=== PATIENT | male | born 1955 | race Caucasian/White ===

== ENCOUNTER 2017-11-26 10:19 | Inpatient (IN) | payer OTHER ==
[2017-11-26 11:00] LABS: PLATELET COUNT 176 10^3/uL (150-400)
--- NOTE | 2017-11-26 11:27 | EDPHY ---
H & P Time Seen by Provider: 11/26/17 10:59 HPI/ROS: CHIEF COMPLAINT: Cough, shortness of breath HISTORY OF PRESENT ILLNESS: 62-year-old male with a history of coronary artery disease and exercise-induced asthma presents with cough and shortness of breath. Onset of runny nose, sore throat and cough 5 days ago. Associated with chills, no known fever. Gradually increasing shortness of breath over last 5 days, now short of breath at rest. He started Ceftin, prednisone and an albuterol inhaler 4 days ago, without relief. He was seen in the office by Dr. Snyder this morning and oxygen saturation was 84% on room air. 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 Smoking Status: Current some day smoker Physical Exam: General Appearance: Alert, pleasant Eyes: Pupils equal and round, no conjunctival pallor or injection ENT, Mouth: Mucous membranes moist Neck: Normal inspection Respiratory: Diffuse expiratory wheezing Cardiovascular: Regular rate and rhythm Gastrointestinal: Abdomen is soft and nontender Neurological: A&O, nonfocal, normal gait Skin: Warm and dry Extremities: Normal inspection Psychiatric: Mood and affect normal Constitutional: Initial Vital Signs Temperature (C) 36.8 C 11/26/17 10:25 Heart Rate 66 11/26/17 10:25 Respiratory Rate 19 11/26/17 10:25 Blood Pressure 127/71 H 11/26/17 10:25 O2 Sat (%) 90 L 11/26/17 10:25 O2 Delivery Mode Room Air O2 (L/minute) 2 Allergies/Adverse Reactions: oxycodone Allergy (Verified 11/26/17 10:23) Home Medications: Medication Instructions Recorded Albuterol Sulfate [Albuterol 1 - 2 puffs IH Q4H PRN 01/31/15 Inhaler Hfa] Aspirin [Aspirin 81mg (*)] 162 mg PO HS 11/26/17 Cefuroxime Axetil [Cefuroxime] 500 mg PO BID 11/26/17 Codeine Phosphate/Guaifenesin 10 ml PO Q6HRS PRN 11/26/17 [Guaiatussin AC Liquid] Nebivolol HCl [Bystolic 5 mg (*)] 10 mg PO HS 11/26/17 Omeprazole [Prilosec 20 mg] 40 mg PO HS 11/26/17 Rosuvastatin Calcium [Crestor 40mg 40 mg PO HS 11/26/17 (*)] amLODIPine BESYLATE [Norvasc 10 mg 10 mg PO HS 11/26/17 (*)] predniSONE [Prednisone] 30 mg PO DAILY 11/26/17 Medical Decision Making - Diagnostics Imaging Results: Chest x-ray independently reviewed by me reveals no infiltrate. ED Course/Re-evaluation: This patient presents with influenza-like symptoms, bronchospasm and hypoxia during an influenza epidemic. He does not meet SIRS criteria. Chest x-ray reveals no evidence of pneumonia. A DuoNeb and Solu-Medrol 125 mg IV given. Feels better and bronchospasm lessened after the DuoNeb. However, he continues to be hypoxic. Influenza A positive. Given 5 days of symptoms, I do not feel that Tamiflu will benefit this patient. He will need to be admitted for hypoxia and bronchospasm. The hospitalist service was consulted for admission. - Data Points Laboratory Results: Laboratory Results 11/26/17 10:50 11/26/17 10:50 Medications Given: Albuterol (Proventil Neb) 3 ml IH Q2HRS PRN PRN Reason: Short of Breath/Dyspnea Stop: 05/25/18 12:59 Last Admin: 11/26/17 14:30 Dose: 3 ml Albuterol/Ipratropium (Duoneb) 3 ml IH QID [facility] Stop: 05/25/18 15:59 Last Admin: 11/27/17 05:42 Dose: 3 ml Aspirin (Aspirin) 162 mg PO [facility] Stop: 05/25/18 20:59 Last Admin: 11/26/17 21:39 Dose: 162 mg Nebivolol (Bystolic) 10 mg PO [facility] Stop: 05/25/18 20:59 Last Admin: 11/26/17 21:39 Dose: 10 mg Oseltamivir Phosphate (Tamiflu) 75 mg PO BIDMEAL [facility] Stop: 11/30/17 18:01 Last Admin: 11/26/17 17:50 Dose: 75 mg Pantoprazole Sodium (Protonix) 40 mg PO [facility] Stop: 05/25/18 20:59 Last Admin: 11/26/17 21:39 Dose: 40 mg Rosuvastatin Calcium (Crestor) 40 mg PO HS [facility] Stop: 05/25/18 20:59 Last Admin: 11/26/17 21:39 Dose: 40 mg Departure - Departure Disposition: [facility] Acute Clinical Impression: Influenza A Exacerbation of asthma Qualifiers: Asthma severity: moderate Asthma persistence: persistent Qualified Code(s): J45.41 - Moderate persistent asthma with (acute) exacerbation Acute bronchitis Qualifiers: Bronchitis organism: unspecified organism Qualified Code(s): J20.9 - Acute bronchitis, unspecified Condition: Fair
[2017-11-26] MEDS ORDERED: ONDANSETRON 4 MG/2 ML VIAL IVP PRN (12:54)
[2017-11-26] MEDS ORDERED: ONDANSETRON DISINTEGRATING 4 MG TAB PO PRN (12:54)
[2017-11-26] MEDS ORDERED: ACETAMINOPHEN 325 MG TAB PO PRN (12:54)
[2017-11-26] MEDS ORDERED: ALBUTEROL 3 ML DEYVIAL IH PRN (13:00)
[2017-11-26] MEDS: OSELTAMIVIR PHOSPHATE 75 MG CAP PO SCH ×2 (13:42→17:50)
--- NOTE | 2017-11-26 15:47 | PDGENHP ---
History and Physical - Chief Complaint cough, SOB, hypoxic in clinic - History of Present Illness 62 yo male with h/o CAD s/p stent in 2014, exercise induced asthma / RAD presents to ED with cough, fatigue, SOB. Symptoms started 4 days ago when he noticed dyspnea while walking the dogs. +subjective fevers and chills. He then coughed all night, a deep, dry cough. No chest pain or pressure. 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 That night, he passed out and hit his head. +LOC. No ongoing headaches, no vomiting or confusion. He felt a little better and saw his motor mechanic today for routine follow up. They tested his walking O2 sat and he was hypoxemic, sats dropped to 80% and he was sent to the ED. History Information - Allergies/Home Medication List Allergies/Adverse Reactions: oxycodone Allergy (Verified 11/26/17 10:23) Home Medications: Albuterol Sulfate [Albuterol Inhaler Hfa] 1 - 2 puffs IH Q4H PRN 01/31/15 [Last Taken Unknown] Aspirin [Aspirin 81mg (*)] 162 mg PO HS 11/26/17 [Last Taken 11/25/17] Cefuroxime Axetil [Cefuroxime] 500 mg PO BID 11/26/17 [Last Taken 11/26/17] Codeine Phosphate/Guaifenesin [Guaiatussin AC Liquid] 10 ml PO Q6HRS PRN [Last Taken 11/25/17 21:00] Nebivolol HCl [Bystolic 5 mg (*)] 10 mg PO HS 11/26/17 [Last Taken 11/25/17] Omeprazole [Prilosec 20 mg] 40 mg PO HS 11/26/17 [Last Taken 11/25/17] Rosuvastatin Calcium [Crestor 40mg (*)] 40 mg PO HS 11/26/17 [Last Taken ] amLODIPine BESYLATE [Norvasc 10 mg (*)] 10 mg PO HS 11/26/17 [Last Taken ] predniSONE [Prednisone] 30 mg PO DAILY 11/26/17 [Last Taken 11/26/17] I have personally reviewed and updated: family history, medical history, social history, surgical history - Past Medical History Additional medical history: RAD / exercise induced asthma. CAD s/p stent. PAD with right femoral arterial occlusion, s/p mechanical thrombectomy - Surgical History Reports: appendectomy Additional surgical history: anal fissure repair, b/l ELIEL, angiogram with PCI - Social History Smoking Status: Former smoker Alcohol Use: None Drug Use: None Additional social history: , at bedside. 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 Review of Systems Review of Systems: ROS: 10pt was reviewed & negative except for what was stated in HPI & below Physical Exam Physical Exam: Temp Pulse Resp BP Pulse Ox 36.6 C 64 20 120/77 94 11/26/17 13:50 11/26/17 14:30 11/26/17 14:30 11/26/17 13:50 11/26/17 14:30 O2 (L/minute) 2 Constitutional: no apparent distress Eyes: PERRL Ears, Nose, Mouth, Throat: moist mucous membranes Cardiovascular: regular rate and rhythym, no murmur, rub, or gallop Respiratory: no respiratory distress, reduced air movement, expiratory wheeze Gastrointestinal: normoactive bowel sounds, soft, non-tender abdomen Skin: warm Musculoskeletal: full muscle strength Neurologic: AAOx3 Psychiatric: interacting appropriately Lab Data & Imaging Review 11/26/17 10:50 11/26/17 10:50 WBC 5.63 10^3/uL (3.80-9.50) 11/26/17 10:50 RBC 5.10 10^6/uL (4.40-6.38) 11/26/17 10:50 Hgb 16.6 g/dL (13.7-17.5) 11/26/17 10:50 Hct 47.0 % (40.0-51.0) 11/26/17 10:50 MCV 92.2 fL (81.5-99.8) 11/26/17 10:50 MCH 32.5 pg (27.9-34.1) 11/26/17 10:50 MCHC 35.3 g/dL (32.4-36.7) 11/26/17 10:50 RDW 12.0 % (11.5-15.2) 11/26/17 10:50 Plt Count 176 10^3/uL (150-400) 11/26/17 10:50 MPV 10.5 fL (8.7-11.7) 11/26/17 10:50 Neut % (Auto) 74.5 % (39.3-74.2) H 11/26/17 10:50 Lymph % (Auto) 15.5 % (15.0-45.0) 11/26/17 10:50 [place] % (Auto) 8.7 % (4.5-13.0) 11/26/17 10:50 Eos % (Auto) 0.4 % (0.6-7.6) L 11/26/17 10:50 Baso % (Auto) 0.4 % (0.3-1.7) 11/26/17 10:50 Nucleat RBC Rel Count 0.0 % (0.0-0.2) 11/26/17 10:50 Absolute Neuts (auto) 4.20 10^3/uL (1.70-6.50) 11/26/17 10:50 Absolute Lymphs (auto) 0.87 10^3/uL (1.00-3.00) L 11/26/17 10:50 Absolute Monos (auto) 0.49 10^3/uL (0.30-0.80) 11/26/17 10:50 Absolute Eos (auto) 0.02 10^3/uL (0.03-0.40) L 11/26/17 10:50 Absolute Basos (auto) 0.02 10^3/uL (0.02-0.10) 11/26/17 10:50 Absolute Nucleated RBC 0.00 10^3/uL (0-0.01) 11/26/17 10:50 Immature Gran % 0.5 % (0.0-1.1) 11/26/17 10:50 Immature Gran # 0.03 10^3/uL (0.00-0.10) 11/26/17 10:50 VBG Lactic Acid 1.3 mmol/L (0.7-2.1) 11/26/17 10:52 Sodium 143 mEq/L (134-144) 11/26/17 10:50 Potassium 4.3 mEq/L (3.5-5.2) 11/26/17 10:50 Chloride 104 mEq/L (97-110) 11/26/17 10:50 Carbon Dioxide 27 mEq/l (22-31) 11/26/17 10:50 Anion Gap 12 mEq/L (8-16) 11/26/17 10:50 BUN 26 mg/dL (7-23) H 11/26/17 10:50 Creatinine 1.1 mg/dL (0.7-1.3) 11/26/17 10:50 Estimated GFR > 60 11/26/17 10:50 Glucose 100 mg/dL (70-100) 11/26/17 10:50 Calcium 9.3 mg/dL (8.5-10.4) 11/26/17 10:50 Nasal Influenza A PCR FLU A DETECTED (NEGATIVE) 11/26/17 11:27 Nasal Influenza B PCR NEGATIVE FOR FLU B (NEGATIVE) 11/26/17 11:27 Visualized and Interpreted Chest x-ray results: Yes Chest X-Ray results: no infiltrate Assessment & Plan Assessment: Acute hypoxemic respiratory failure secondary to influenza A with RAD component - 2 LPM, minimal amount of wheezing. No e/o PNA. -start tamiflu -duonebs, prn albuterol nebs -cont prednisone -supportive care -wean O2 as able, may require home oxygen -needs outpt sleep study CAD s/p stent - stable, CP free. -cont ASA, BB, statin Recent syncope - with LOC. This occurred >72 hrs ago in the setting of active influenza and a coughing spasm. No headache or vomiting. -consider outpt cardiac event monitor, f/u with Dr. Snyder Full code DVT PPLX - Lovenox Dispo - inpt, suspect he'll require >48 hrs hospitalization for ongoing management of his influenza and hypoxemia
[2017-11-26] MEDS ORDERED: guaiFENesin/CODEINE PHOS 10 ML UDCUP PO PRN (16:04)
[2017-11-26] MEDS: IPRATROPIUM/ALBUTEROL 3 ML DEYVIAL IH SCH ×2 (16:30→20:07)
--- NOTE | 2017-11-26 17:58 | PDMN ---
Medical Necessity Medical necessity: Pt meets INPT criteria per MD and [facility] Systemic or Infectious Condition GRG (acute hypoxemic respiratory failure secondary to influenza A with RAD component, sats dropped to 80% after walking, failed outpt tx; hx recent syncope, CAD s/p stent per H&P).
[2017-11-26] MEDS ORDERED: NON-FORMULARY NEW DRUG (Omeprazole [Prilosec 20 Mg] 40 MG) PO SCH (21:00)
[2017-11-26] MEDS: ROSUVASTATIN CALCIUM 40 MG TAB PO SCH (21:39)
[2017-11-26] MEDS: ASPIRIN 81 MG CHEWABLE TAB PO SCH (21:39)
[2017-11-26] MEDS: NEBIVOLOL HCL 5 MG TAB PO SCH (21:39)
[2017-11-26] MEDS: PANTOPRAZOLE SODIUM 40 MG TAB PO SCH (21:39)
[2017-11-27] MEDS: IPRATROPIUM/ALBUTEROL 3 ML DEYVIAL IH SCH ×4 (05:42→22:01)
[2017-11-27] MEDS: predniSONE 10 MG TAB PO SCH (09:19)
[2017-11-27] MEDS: OSELTAMIVIR PHOSPHATE 75 MG CAP PO SCH ×2 (09:19→17:58)
--- NOTE | 2017-11-27 15:47 | HOSPPROG ---
Hospitalist Progress Note Assessment/Plan: Acute hypoxemic respiratory failure secondary to influenza A with RAD component - 2 LPM, minimal amount of wheezing. No e/o PNA. -cont tamiflu, duonebs, prn albuterol nebs -cont prednisone -wean O2 as able, may require home oxygen -needs outpt sleep study CAD s/p stent - stable, CP free. -cont ASA, BB, statin Recent syncope - with LOC. This occurred >72 hrs ago in the setting of active influenza and a coughing spasm. No headache or vomiting. -consider outpt cardiac event monitor, f/u with Dr. Snyder Full code DVT PPLX - Lovenox Dispo - cont inpt Subjective: Pt feels a bit better, still some coughing and SOB. No fevers. No CP. Appetite ok. Objective: Vital Signs Temp Pulse Resp BP Pulse Ox 36.7 C 64 18 110/70 91 L 11/27/17 11:53 11/27/17 11:53 11/27/17 11:53 11/27/17 11:53 11/27/17 11:53 11/26/17 11/27/17 11/28/17 05:59 05:59 05:59 Intake Total 1630 Balance 1630 - Physical Exam Constitutional: no apparent distress Eyes: PERRL Ears, Nose, Mouth, Throat: moist mucous membranes Cardiovascular: regular rate and rhythym Respiratory: no respiratory distress, clear to auscultation, reduced air movement Gastrointestinal: normoactive bowel sounds, soft, non-tender abdomen Skin: warm Musculoskeletal: full muscle strength Neurologic: AAOx3 Psychiatric: interacting appropriately ICD10 Worksheet Patient Problems: Problems Problem Status Onset Acute bronchitis Acute Exacerbation of asthma Acute Influenza A Acute Coronary artery disease Acute Hyperlipidemia Acute Hypertension Acute Peripheral artery disease Acute
--- NOTE | 2017-11-27 15:56 | ASMTCMCOM ---
CM Note CM Note Notes: Pt admitted with flu and hypoxemia. Anticipate will DC with no needs. Date Signed: 11/27/2017 03:50 PM Electronically Signed By:Roxane Pierson LCSW
[2017-11-27] MEDS: ASPIRIN 81 MG CHEWABLE TAB PO SCH (22:12)
[2017-11-27] MEDS: NEBIVOLOL HCL 5 MG TAB PO SCH (22:12)
[2017-11-27] MEDS: ROSUVASTATIN CALCIUM 40 MG TAB PO SCH (22:12)
[2017-11-27] MEDS: PANTOPRAZOLE SODIUM 40 MG TAB PO SCH (22:12)
[2017-11-27] MEDS ORDERED: MELATONIN 3 MG TAB PO PRN (23:29)
[2017-11-27] MEDS ORDERED: diphenhydrAMINE 25 MG CAP PO PRN (23:29)
[2017-11-28] MEDS: IPRATROPIUM/ALBUTEROL 3 ML DEYVIAL IH SCH ×2 (06:04→12:49)
[2017-11-28] MEDS: predniSONE 10 MG TAB PO SCH (08:19)
[2017-11-28] MEDS: OSELTAMIVIR PHOSPHATE 75 MG CAP PO SCH (08:19)
[2017-11-28] MEDS ORDERED: guaiFENesin 600 MG TAB.ER PO SCH (09:00)
[2017-11-28 11:23] VITALS: BP 132/77; TEMP 98.3
[2017-11-28 12:54] VITALS: PULSE 74; RESP 18; O2SAT 92
--- NOTE | 2017-11-29 03:55 | GDS ---
[f rep st] DISCHARGE SUMMARY DISCHARGE DIAGNOSES: 1. Acute hypoxia secondary to influenza A. 2. Influenza A. 3. Recent syncope 72 hours prior to admission. 4. Coronary artery disease status post stent. The patient is chest pain free. HISTORY OF DETAILS: Please see the history and physical dated November 26, 2017. In brief, the patien rahul is a 62-year-old male with a history of coronary artery disease and reactive airways disease who pr esented to the emergency department from clinic due to hypoxemia with ambulation. In the emergency d epartment, he tested positive for influenza A and was admitted to the hospital for further management . HOSPITAL COURSE: The patient was admitted to Med/Surg unit. He was started on Tamiflu. He received scheduled DuoNebs, along with p.r.n. albuterol nebs. He was continued on his prednisone taper and g iven supplemental oxygen. There was some suspicion for sleep apnea and he should have an outpatient sleep study. In addition, we discussed his recent syncopal events. This occurred 3 days prior to ad mission in the setting of a coughing spasm. This prolonged coughing episode may have led to hypoxemi a causing his syncope. 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 His symptoms improved during hospitalization. He has been main taining his oxygen saturations greater than 90% on room air and did not meet criteria for home oxygen ; even with ambulation, his sats did not drop below 88% on room air. The patient feels well and is s table for discharge. DISPOSITION: The patient is discharged home in stable condition. FOLLOWUP: 1. Dr. Trinh , pulmonology. 2. Dr. Maxwell Snyder, cardiology. 3. Dr. Hai Rodarte, primary care. DISCHARGE MEDICATIONS: Please see [employer] for complete updated outpatient medication list. New med ications on discharge include Tamiflu 75 mg p.o. twice daily for 5 more doses, a total of 10 doses, P roAir inhaler 1-2 puffs q.3 hours p.r.n. and guaifenesin 1200 mg p.o. twice daily #30 no refills. He will continue all other outpatient medications as previously prescribed. /[id number]/MODL
--- NOTE | 2017-11-29 16:11 | ASDISCHSUM ---
Discharge Information Plan Status:Home with No Needs Medically Cleared to Leave:11/27/2017 Discharge Date:11/28/2017 02:25 PM CM D/C Disposition:Home, Routine, Self-Care ADT D/C Disposition:Home, Routine, Self-Care Projected Discharge Date:11/28/2017 12:00 AM Transportation at D/C:Family Discharge Delay Reason: Follow-Up Date:11/28/2017 12:00 AM Discharge Slot: Final Diagnosis:Hypoxia due to influenza A, CAD s/p stent Placement Information Patient Contact Information Contact Name:ANA Relationship: Address:[address] City:[place] Alternate Phone: [facility] [address]/Zip Code:[place] [address] Email: Financial Information Financial Class:HMO and PPO Plans Primary Plan Desc:HMO [employer] [place] [employer] Primary Plan Number:[id number] Secondary Plan Desc: Secondary Plan Number: Assessment Information [facility] CM Progress Note CM Note CM Note Notes: Pt admitted with flu and hypoxemia. Anticipate will DC with no needs. Date Signed: 11/27/2017 03:50 PM Electronically Signed By:Roxane Pierson LCSW Case Management Discharge Plan Note Case Management Discharge Discharge Order Complete? Answers: Yes Followup Appointment 11/28/2017 12:00 AM Patient to Obtain Answers: via Family Medications Transportation Arranged Answers: Family/Friends Transport will Pick (Date 11/28/2017 12:00 AM & Time) Family Notified Answers: Yes Notes: Family to transport Discharge Comments Notes: Patient has been discharged, no d/c needs. Date Signed: 11/29/2017 04:10 PM Electronically Signed By:Sammi Peña LCSW Intervention Information Intervention Type:*Incorrect Registration Date of Service:11/26/2017 05:57 PM Patient Type:Inpatient Staff Member:NITHIN Weller, Janki Hours: Discipline: Severity: Comment:
== END 2017-11-28 14:25 | disposition home or self-care (01) | DRG 195 ==
LOC: OBSVTOIN 11:58 → F1N 13:34
PROVIDERS: ADMIT Internal Medicine; ATTEND Hospitalist
DX: J10.1 Influenza due to other identified influenza virus with other respiratory manifestations (principal); R09.02 Hypoxemia; I25.10 Atherosclerotic heart disease of native coronary artery without angina pectoris; J45.990 Exercise induced bronchospasm; Z95.5 Presence of coronary angioplasty implant and graft
CPT/HCPCS: J7512; J7613